=== PATIENT | female | born 1995 ===

== ENCOUNTER 2016-05-15 01:13 | Emergency (ER) | payer OTHER ==
[~2016-05-15] VITALS: Ht 162.6 cm; Wt 56.2 kg
[2016-05-15 01:36] VITALS: BP 126/68
--- NOTE | 2016-05-15 01:59 | NUR ---
PT TAKEN TO BED 6
--- NOTE | 2016-05-15 02:05 | NUR ---
Dr. Greenfield evaluating patient at bedside.
--- NOTE | 2016-05-15 04:15 | NUR ---
Patient discharged with v/s stable BY DR. BAUGH. Written and verbal after care instructions given and explained. Patient verbalized understanding. Ambulatory with steady gait. All questions addressed prior to discharge. Advised to follow up with PMD.
[2016-05-15 04:17] VITALS: BP 122/65
== END 2016-05-15 04:15 | disposition home or self-care (01) ==
LOC: MED 01:13
DX: R55 Syncope and collapse (principal); Z88.0 Allergy status to penicillin